=== PATIENT | female | born 1985 | race Caucasian/White ===

== ENCOUNTER → 2016-06-14 | Outpatient (CLI) | payer OTHER ==
--- NOTE | 2016-06-14 18:30 | US ---
Ultrasound obstetrics first trimester. Clinical indication: Size and dates. 31-year-old female. FINDINGS: There is a living IUP with a crown-rump length of 30 mm corresponding to 10 weeks 0 days. G estational age by ultrasound is 9 weeks 6 days. Estimated date of confinement is January 11, 2017. Hea rt beat is 155 bpm. Yolk sac is 0.57 cm. The right ovary measures 3.0 x 1.6 x 1.6 cm with normal color Doppler flow and resistive index of 0.6 2. Left ovary measures 2.7 x 1.9 x 2.0 cm with normal color Doppler flow and resistive index is 0.62. Impression: Living IUP of 10 weeks 0 days by crown-rump length. This is concordant with the gestatio nal age by LMP of 9 weeks 6 days for an estimated date of confinement of January 11, 2017. Critical results relayed by Dr. Dudley Aguiar to order desk clerk Mehrdad Abrams, today 1708 hours.
== END ==
LOC: FIMAGING 15:00
PROVIDERS: ATTEND Advanced Practice Midwife
DX: Z34.01 Encounter for supervision of normal first pregnancy, first trimester (principal); Z3A.10 10 weeks gestation of pregnancy

== ENCOUNTER → 2016-08-25 | Outpatient (CLI) | payer OTHER | LOC: FIMAGING 10:40 | PROVIDERS: ATTEND Advanced Practice Midwife | DX: Z34.02 Encounter for supervision of normal first pregnancy, second trimester (principal); Z3A.20 20 weeks gestation of pregnancy ==

== ENCOUNTER → 2017-01-16 | Outpatient (CLI) | payer OTHER | LOC: FIMAGING 14:11 | PROVIDERS: ATTEND Advanced Practice Midwife | DX: Z34.03 Encounter for supervision of normal first pregnancy, third trimester (principal); Z3A.40 40 weeks gestation of pregnancy ==

== ENCOUNTER → 2018-03-05 | Outpatient (CLI) | payer OTHER | LOC: FIMAGING 11:43 | PROVIDERS: ATTEND Advanced Practice Midwife | DX: Z34.92 Encounter for supervision of normal pregnancy, unspecified, second trimester (principal); Z3A.20 20 weeks gestation of pregnancy ==